=== PATIENT | female | born 1975 | race Caucasian/White ===

== ENCOUNTER 2024-09-16 15:48 | Emergency (ER) | payer SELFPAY ==
[2024-09-16] MEDS ORDERED: Lidocaine 4% Patch ONE (17:56)
[2024-09-16] MEDS ORDERED: Cyclobenzaprine 10 MG TAB ONE (17:56)
[2024-09-16] MEDS ORDERED: Ketorolac Tromethamine 30 MG (1 mL) VIAL ONE (17:56)
[2024-09-16 18:17] LABS: Bilirubin Negative (Negative); Blood, Urine Negative (Negative); CAUTI Indications for Culture Pelvic or flank pain; Clarity Clear (Clear); Glucose, Urine (Dipstick) Normal (Negative); Ketone, Urine Negative (Negative); Leukocyte 250 Leu/uL (Negative); Nitrite Negative (Negative); Protein, Urine (Dipstick) Negative (Neg-Trace); RBC/HPF 0-3 HPF (0-3); Specific Gravity, Urine 1.018 (1.002-1.036); Squamous Epithelial 0-3 HPF (0-3); Urobilinogen 3 mg/dL (Less than 2); pH, Urine 7.5 (5.0-9.0)
[2024-09-16 18:50] LABS: Bacteria/HPF Rare-Few HPF (None Seen)
[2024-09-16 18:51] LABS: Urine Culture Reflex No No
== END 2024-09-16 19:24 | disposition home or self-care (01) ==
LOC: ERS 15:48
DX: M54.42 Lumbago with sciatica, left side (principal); M54.41 Lumbago with sciatica, right side; N39.0 Urinary tract infection, site not specified; I10 Essential (primary) hypertension
CPT/HCPCS: 81001; 87077; 87086; 87480; 87510; 87660; 96372; 99283; J1885